=== PATIENT | male | born 1985 | race Caucasian/White ===

== ENCOUNTER 2020-05-28 04:35 | Observation (INO) | payer MEDICAID ==
[2020-05-28] VITALS (9 sets, daily range): BP systolic 111–134; BP diastolic 47–73; PULSE 65–88; TEMP 97.8–98.7
[~2020-05-28] VITALS: Ht 160 cm; Wt 95.5 kg
[~2020-05-28 04:35] MED LIST: ALLEGRA 180MG180 MG PO; HCTZ; HCTZ12.5TAB PO; IPRATROPIUM BROM3 M1 IH; KLOR-CON M2020 MEQ PO; LASIX 20MG TABL20 MG PO; LEVAQUIN 750MG750 M1 PO; LOPRESSOR 550 MG/TAB PO; MASON NATURAL2000 IU PO; OMNICEF 300MG300 MG PO; PROAIR HFA0.09 MG/AC IH; SINGULAIR 110 MG/TAB PO; TOPROL XL100 MG PO; ZESTRIL 5MG5 MG PO; ZOCOR; ZOCOR 20MG20 MG PO; ZYRTEC 10MG10 MG PO; ZYRTEC10 MG PO
[2020-05-28 05:37] LABS: COLLECTION METHOD CLEAN CATCH
[2020-05-28 05:52] LABS: PH 5 (5-8); SQUAMOUS EPITHELIAL None Seen /hpf; URINE APPEARANCE Clear; URINE BACTERIA None Seen /hpf; URINE BILIRUBIN Negative (NEGATIVE); URINE BLOOD 1+ (NEGATIVE); URINE COLOR Yellow; URINE GLUCOSE Negative (NEGATIVE); URINE KETONE Negative (NEGATIVE); URINE LEUKOCYTE ESTERASE Negative (NEGATIVE); URINE NITRATE Negative (NEGATIVE); URINE PROTEIN(semi-quant) Negative (NEGATIVE); URINE RBC 0-2 /hpf; URINE UROBILINOGEN Negative (NEGATIVE)
[2020-05-28 06:58] LABS: HEMATOCRIT 40.9 % (42.0-52.0); HEMOGLOBIN 13.6 g/dl (13.5-18.0); MEAN CELL VOLUME 89 fl (80.0-100.0); MEAN CORPUSCULAR HEMOGLOBIN 30 pg (27.0-31.0); MEAN CORPUSCULAR HGB CONC 33 g/dl (33.0-37.0); MEAN PLATELET VOLUME 10.5 fl (7.4-10.4); PLATELET COUNT 205 K/mm3 (130-400); REDCELL DISTRIBUTION WIDTH-CV 13.2 % (11.5-14.5)
[2020-05-28 07:22] LABS: ALANINE AMINOTRANSFERASE 19 U/L (4-49); ALBUMIN 4.1 gm/dL (3.5-5.0); ALKALINE PHOSPHATASE 83 U/L (50-136); ANION GAP 8 mmol/L (7-16); AST,SGOT 24 U/L (15-37); BILIRUBIN,TOTAL 0.9 mg/dL (0.0-1.0); BLOOD UREA NITROGEN 16 mg/dL (9-20); C-REACTIVE PROTEIN 7.6 mg/dL (0.0-0.9); CALCIUM 9.4 mg/dL (8.4-10.2); CARBON DIOXIDE 29 mmol/L (22-30); CHLORIDE 96 mmol/L (98-107); CREATININE, serum 0.68 (0.66-1.25); GLUCOSE 122 mg/dL (74-106); LIPASE 47 U/L (23-300); MAGNESIUM 1.9 mg/dL (1.6-2.3); POTASSIUM 3.8 mmol/L (3.4-5.0); SODIUM 132 mmol/L (137-145); TOTAL PROTEIN 7.4 gm/dL (6.4-8.2)
[2020-05-28 07:32] LABS: TROPONIN-I < 0.012 ng/mL (0.000-0.035)
[2020-05-28 07:51] LABS: BAND 23 % (0-10); LYMPHOCYTE 3 % (20.0-51.0); NEUTROPHILS 73 % (42.0-75.2); PLATELET ESTIMATE NORMAL (NORMAL)
--- NOTE | 2020-05-28 13:52 | NUR ---
Crystallographer met with patient and patient's father, Anand (ph#[phone]) to discuss discharge planning. Anand assisted patient in answering intake questions. Patient normally lives in a half-way run by [facility], but since December has been living with his parents, Anand and Enedina (ph#[phone]) due to COVID. Anand advised that in December, [facility] shut their Day Services program down temporarily. During this shut down, families could not visit clients in the group homes so Anand and Enedina decided to have patient stay with them during this time. Eventually, patient will return to his half-way. Patient's primary care physician is Dr. Hebert in [place] and patient's medications are obtained from [facility]. Patient's parents, Anand and Enedina are his legal guardians. Patient uses a bipap at night and has no other DME. Patient is currently requiring oxygen although he normally does not need it at home. SW will continue to monitor. Patient is normally independent with ADLS but has support available from family and [facility] if needed. Patient will return home with his parents upon discharge. SW will continue to follow as needed.
--- NOTE | 2020-05-28 18:42 | NUR ---
Pt rested well after arriving to the unit. His father at bedside. Pt denies any pain. Three sites to abdomen, bandaids CDI. Pt tolerating PO fluids and food without N/V or pain. IVF dc'd, INT to R hand. No needs at this time. Call light within reach.
--- NOTE | 2020-05-28 18:47 | NUR ---
Pt ambulating in the halls with dad.
[2020-05-29 03:45] VITALS: BP 129/73; PULSE 81; TEMP 98.5
--- NOTE | 2020-05-29 03:46 | NUR ---
Patient up ambulating in the halls during shift report. Patient denies pain. Father at bedside and states he has administered patient's evening medications already. Noted this in the MAR. Patient is asleep with CPAP during rounds. Vitals remain stable. No drainage from incisions. States passing gas. Patient has slept well. Will continue to monitor.
[2020-05-29 07:27] LABS: CALCIUM 9.1 mg/dL (8.4-10.2); CREATININE, serum 0.57 (0.66-1.25); MAGNESIUM 2.4 mg/dL (1.6-2.3); POTASSIUM 4.1 mmol/L (3.4-5.0)
[2020-05-29 08:04] VITALS: BP 144/65; PULSE 75; TEMP 98.1
--- NOTE | 2020-05-29 08:13 | NUR ---
Patient lying in bed watching TV. Denies pain. Eating without N/V. Dad in room with the patient. Patient is alert and oriented for his baseline. Patient hoping to go home today. Denies needs at this time.
[2020-05-29 08:41] LABS: HEMATOCRIT 38.5 % (42.0-52.0); HEMOGLOBIN 12.8 g/dl (13.5-18.0); MEAN CELL VOLUME 91 fl (80.0-100.0); MEAN CORPUSCULAR HEMOGLOBIN 30 pg (27.0-31.0); MEAN CORPUSCULAR HGB CONC 33 g/dl (33.0-37.0); PLATELET COUNT 190 K/mm3 (130-400); RED BLOOD COUNT 4.25 M/mm3 (4.20-5.60); REDCELL DISTRIBUTION WIDTH-CV 13.6 % (11.5-14.5)
--- NOTE | 2020-05-29 08:53 | NUR ---
Receive call from lab with critical WBC level. OLIVERIO Nieves, informed and she recommends we notify Dr. Schroeder for any further recommendations. Contact Dr. Schroeder and he explains that patient is stable and it is probably due to surgery. No new orders, patient may discharge and to monitor closely for fevers and pain and have the patient dad contact his office if any of those symptoms are noted.
--- NOTE | 2020-05-29 08:58 | NUR ---
Discharge instructions reviewed with patient and his father. Questions answered and father signs all discharge paperwork. Discharge packet provided to the patient. Father will notify staff when his is there to pick them up. Denies additional needs at this time.
--- NOTE | 2020-05-29 10:20 | NUR ---
Patient's father uses call light and informs staff that their ride is here to pick him up. Patient assisted out to POV via wheelchair with all belongings by JANE Banerjee.
[2020-05-29 10:46] LABS: BAND 23 % (0-10); LYMPHOCYTE 1 % (20.0-51.0); NEUTROPHILS 74 % (42.0-75.2); PLATELET ESTIMATE NORMAL (NORMAL)
== END 2020-05-29 10:20 | disposition home or self-care (01) ==
LOC: COL.ER 04:35 → SURG 08:36
PROVIDERS: Emergency Medicine; Internal Medicine; ADMIT Surgery
DX: K35.891 Other acute appendicitis without perforation, with gangrene (principal); R09.02 Hypoxemia; Q87.11 Prader-Willi syndrome; E87.1 Hypo-osmolality and hyponatremia; E78.5 Hyperlipidemia, unspecified; I11.0 Hypertensive heart disease with heart failure; I50.30 Unspecified diastolic (congestive) heart failure; I27.20 Pulmonary hypertension, unspecified; G47.33 Obstructive sleep apnea (adult) (pediatric); Z20.828 Contact with and (suspected) exposure to other viral communicable diseases; Z79.899 Other long term (current) drug therapy; Z87.01 Personal history of pneumonia (recurrent); Z88.2 Allergy status to sulfonamides; Z88.1 Allergy status to other antibiotic agents; Z88.8 Allergy status to other drugs, medicaments and biological substances
CPT/HCPCS: 99223; A9284; G0378; J0330; J2543; J2704; J3010; J7030; Q9967